=== PATIENT | female | born 1985 | race Caucasian/White ===

== ENCOUNTER → 2017-02-02 | Outpatient (REF) | payer OTHER | LOC: M SFHCWAGY 16:08 | PROVIDERS: ATTEND Nurse Practitioner Family | DX: Z12.4 Encounter for screening for malignant neoplasm of cervix (principal) ==

== ENCOUNTER → 2018-02-04 | Outpatient (REF) | payer OTHER | LOC: M SFHCWAGY 16:12 | DX: Z12.4 Encounter for screening for malignant neoplasm of cervix (principal) ==

== ENCOUNTER → 2018-06-22 | Outpatient (REF) | payer OTHER ==
[2018-06-22 13:43] LABS: HEMATOCRIT 43.4 % (36.0-47.0); HEMOGLOBIN 14.5 g/dl (12.0-15.5); MEAN CORPUSCULAR HEMOGLOBIN 30.5 pg (27.0-33.0); MEAN CORPUSCULAR HGB CONC 33.4 g/dl (32.0-36.5); MEAN CORPUSCULAR VOLUME 91.2 fl (80.0-96.0); PLATELET COUNT, AUTOMATED 254 10^3/uL (150-450); RED BLOOD COUNT 4.76 10^6/uL (4.00-5.40); WHITE BLOOD COUNT 6.8 10^3/uL (4.0-10.0)
[2018-06-22 14:18] LABS: HCG, SERUM QUALITATIVE NEGATIVE (NEGATIVE); PROLACTIN 4.9 NG/ML
[2018-06-22 14:19] LABS: FOLLICLE STIMULATING HORMONE 8.3 mIU/mL
[2018-06-24 00:06] LABS: TESTOSTERONE FREE (DIRECT) 2.6 pg/mL (0.0-4.2)
== END ==
LOC: M SFHCWAGY 12:36
PROVIDERS: ATTEND Nurse Practitioner Family
DX: N91.1 Secondary amenorrhea (principal)

== ENCOUNTER → 2018-12-14 | Outpatient (CLI) | payer OTHER ==
--- NOTE | 2018-12-14 14:03 | REP ---
Clinical: Irregular menstrual cycles . Technique: Transabdominal pelvic ultrasound followed by transvaginal examination for better evaluation of the endometrium and adnexa with color Doppler evaluation of the ovaries. Findings: Bladder is unremarkable and measures 14.0 x 10.2 x 7.7 cm . Normal anteverted/left deviated uterus measures 9.1 x 3.4 x 4.6 cm . The endometrial complex measures 10.5 mm thickness. No discrete uterine or endometrial abnormalities are appreciated. Incidental subcentimeter Nabothian cyst. Bilateral ovaries are normal in vascularity without torsion. Right ovary is enlarged and heterogeneous measuring 5.3 x 2.9 x 4.2 cm (RI 0.39) but without focal mass lesion or abnormality identified. Left ovary measures 1.7 x 1.0 x 1.5 cm (RI 0.55). No pelvic fluid or adnexal mass lesion. . Impression: 1. Essentially normal appearance to the uterus and the left ovary. 2. Right ovary appears heterogeneous and enlarged without discrete mass lesion. Consider reevaluation in 4-6 weeks to evaluate for resolution.
== END ==
LOC: M WHC 12:56
PROVIDERS: ATTEND Nurse Practitioner Family
DX: N92.6 Irregular menstruation, unspecified (principal)

== ENCOUNTER → 2019-02-14 | Outpatient (REF) | payer OTHER | LOC: M SFHCWAGY 16:02 | PROVIDERS: ATTEND Nurse Practitioner Family | DX: Z12.4 Encounter for screening for malignant neoplasm of cervix (principal) ==

== ENCOUNTER → 2020-02-16 | Outpatient (REF) | payer OTHER | LOC: M SFHCWAGY 10:03 | PROVIDERS: ATTEND Nurse Practitioner Family | DX: Z12.4 Encounter for screening for malignant neoplasm of cervix (principal) ==

== ENCOUNTER → 2020-06-07 | Outpatient (CLI) | payer OTHER ==
--- NOTE | 2020-06-07 09:10 | REP ---
INDICATION: PERSONAL HX BREAST CA,BRCA GENE POSITIVE HIGH RISK OVARIAN C COMPARISON: None. TECHNIQUE: Transabdominal pelvic ultrasound followed by transvaginal examination for better evaluation of the endometrium and adnexa with color evaluation of the ovaries. FINDINGS: Bladder is unremarkable and measures 5.7 x 3.4 x 7.2 cm. Anteverted uterus measures 0.7 x 3.7 x 4.6 cm. The endometrial complex measures 6.5 mm thickness. There appears to be a 1.5 cm suspected intramural fibroid along the right midbody of the uterus. Bilateral ovaries are normal in appearance. Right ovary measures 5.0 x 1.8 x 2.7 cm; left ovary measures 5.0 x 1.5 x 3.1 cm. No pelvic fluid or adnexal mass lesion. IMPRESSION: 1. Findings suggesting 1.5 cm intramural fibroid. <Electronically signed by Vu Lin > 06/07/20 [id number]
== END ==
LOC: M WHC 07:06
PROVIDERS: ATTEND Nurse Practitioner Family
DX: Z15.01 Genetic susceptibility to malignant neoplasm of breast (principal); Z85.3 Personal history of malignant neoplasm of breast

== ENCOUNTER → 2020-09-25 | Outpatient (REF) | payer OTHER ==
[2020-09-25 18:07] LABS: HEMATOCRIT 41.7 % (36.0-47.0); HEMOGLOBIN 13.7 g/dl (12.0-15.5); MEAN CORPUSCULAR HEMOGLOBIN 30.2 pg (27.0-33.0); MEAN CORPUSCULAR HGB CONC 32.9 g/dl (32.0-36.5); MEAN CORPUSCULAR VOLUME 92.1 fl (80.0-96.0); PLATELET COUNT, AUTOMATED 247 10^3/uL (150-450); RED BLOOD COUNT 4.53 10^6/uL (4.00-5.40); WHITE BLOOD COUNT 8.5 10^3/uL (4.0-10.0)
[2020-09-25 19:11] LABS: HEPATITIS C VIRUS ABY INDEX < 0.0 INDEX (<0.8); HIV 1&2 SCREEN CENTAUR NEGATIVE (NEGATIVE)
== END ==
LOC: M PLALAB 15:21
PROVIDERS: ATTEND Advanced Practice Midwife
DX: Z34.91 Encounter for supervision of normal pregnancy, unspecified, first trimester (principal); Z3A.01 Less than 8 weeks gestation of pregnancy

== ENCOUNTER → 2020-11-06 | Outpatient (CLI) | payer OTHER | LOC: M PLALAB 15:43 | PROVIDERS: ATTEND Specialist | DX: O09.511 Supervision of elderly primigravida, first trimester (principal) ==

== ENCOUNTER → 2020-12-18 | Outpatient (CLI) | payer OTHER ==
[~2020-12-18] MED LIST: CETI-24 PO; COLA100C5 PO; IBUP80TA PO; PERCOCET PO; PRENTAB9 PO
== END ==
LOC: M WHC 14:01
PROVIDERS: ATTEND Specialist
DX: Z34.82 Encounter for supervision of other normal pregnancy, second trimester (principal)

== ENCOUNTER → 2021-02-19 | Outpatient (CLI) | payer OTHER ==
[2021-02-19 16:33] LABS: HEMATOCRIT 33.5 % (36.0-47.0); HEMOGLOBIN 11.5 g/dl (12.0-15.5); MEAN CORPUSCULAR HEMOGLOBIN 31.3 pg (27.0-33.0); MEAN CORPUSCULAR HGB CONC 34.3 g/dl (32.0-36.5); PLATELET COUNT, AUTOMATED 235 10^3/uL (150-450); RED BLOOD COUNT 3.68 10^6/uL (4.00-5.40); WHITE BLOOD COUNT 11.2 10^3/uL (4.0-10.0)
== END ==
LOC: M LAB 14:53
PROVIDERS: ATTEND Advanced Practice Midwife
DX: O09.512 Supervision of elderly primigravida, second trimester (principal); Z3A.00 Weeks of gestation of pregnancy not specified

== ENCOUNTER → 2021-03-04 | Outpatient (CLI) | payer OTHER | LOC: M LAB 07:19 | PROVIDERS: ATTEND Advanced Practice Midwife | DX: O09.512 Supervision of elderly primigravida, second trimester (principal); Z3A.00 Weeks of gestation of pregnancy not specified ==

== ENCOUNTER → 2021-03-28 | Outpatient (CLI) | payer OTHER ==
--- NOTE | 2021-03-28 13:43 | REP ---
INDICATION: GROWTH, SIZE DATE DISCREPANCY. COMPARISON: 12/18/2020 TECHNIQUE: Transabdominal scanning FINDINGS: Multiple ultrasonographic images of the gravid uterus shows a single living intrauterine gestation in the breech presentation. Doppler interrogation of the heart shows a heart rate of 152 beats per minute. The placenta is anterior and not low-lying. The cervix measures 4.6 cm in length and is closed. Doppler interrogation of the umbilical artery shows an A\B ratio of 2.33. This is within the normal range. The subjective amniotic fluid volume is within normal limits. The calculated amniotic fluid index is 10.9 with an expected range of 8.4-24.4. BPD: 8.9 cm 36 weeks 0 days HC: 30.3 cm 33 weeks 5 days AC: 29.8 cm 33 weeks 6 days FL: 6 cm 31 weeks 1 day The estimated weight is 2151 g which is at the 62nd percentile. A uterine fibroid was again identified. This is unchanged. IMPRESSION: Single living intrauterine gestation as described above with an estimated gestational age of 33 weeks 2 days via composite criteria and an estimated date of delivery of 05/14/2021 by today's exam. <Electronically signed by Rodrigo Tomas > 03/28/21 [id number]
== END ==
LOC: M WHC 10:37
PROVIDERS: ATTEND Advanced Practice Midwife
DX: O26.849 Uterine size-date discrepancy, unspecified trimester (principal)

== ENCOUNTER → 2021-04-25 | Outpatient (REF) | payer OTHER | LOC: M SFHCWAGY 17:33 | PROVIDERS: ATTEND Obstetrics & Gynecology | DX: O32.1XX1 Maternal care for breech presentation, fetus 1 (principal); Z3A.00 Weeks of gestation of pregnancy not specified ==

== ENCOUNTER → 2021-05-08 | Outpatient (CLI) | payer OTHER ==
[~2021-05-08] MED LIST changes: -COLA100C5 PO; -IBUP80TA PO; -PERCOCET PO; -PRENTAB9 PO
== END ==
LOC: M LABSMTC 11:01
PROVIDERS: ATTEND Anesthesiology
DX: Z01.812 Encounter for preprocedural laboratory examination (principal); Z20.822 Contact with and (suspected) exposure to COVID-19

== ENCOUNTER 2021-05-13 06:14 | Inpatient (IN) | payer OTHER ==
[2021-05-13] VITALS (8 sets, daily range): BP systolic 123–146; BP diastolic 66–87
[~2021-05-13] VITALS: Ht 157.5 cm; Wt 102.4 kg
[2021-05-13] MEDS ORDERED: PRENTAB9 PO (07:02)
[2021-05-13 07:24] LABS: HEMATOCRIT 35.9 % (36.0-47.0); HEMOGLOBIN 12.1 g/dl (12.0-15.5); MEAN CORPUSCULAR HEMOGLOBIN 30.3 pg (27.0-33.0); MEAN CORPUSCULAR HGB CONC 33.7 g/dl (32.0-36.5); MEAN CORPUSCULAR VOLUME 89.8 fl (80.0-96.0); PLATELET COUNT, AUTOMATED 195 10^3/uL (150-450); WHITE BLOOD COUNT 11.3 10^3/uL (4.0-10.0)
[2021-05-13] MEDS ORDERED: BICITRA 30ML SOLN UDC PO ONE (08:10)
[2021-05-13] MEDS ORDERED: CLINDAMYCIN 900 MG in IV 1 EA IV ONE (08:10)
[2021-05-13] MEDS ORDERED: GENTAMICIN 120 MG in D5W 50 ML IV ONE (08:10)
[2021-05-13] MEDS ORDERED: LR 1,000 ML IV SCH ×2 (08:10→11:50)
[2021-05-13] MEDS ORDERED: OXYTOCIN INJ 10 UNITS/ML VIAL (J2590) As Ordered ONE (09:32)
[2021-05-13] MEDS ORDERED: MORPHINE PRES-FREE INJ 10 MG/10 ML VIAL (J2274) As Ordered ONE (09:34)
[2021-05-13] MEDS ORDERED: ONDANSETRON 4MG/2ML VIAL As Ordered ONE ×2 (10:19→12:21)
[2021-05-13] MEDS ORDERED: NALBUPHINE HCL 10 MG/ML AMP (J2300) IV PRN (10:24)
[2021-05-13] MEDS ORDERED: ONDANSETRON 4MG/2ML VIAL IV PRN ×3 (10:24→11:50)
[2021-05-13] MEDS ORDERED: diphenhydrAMINE 50MG/ML VIAL (J1200) IV PRN (10:24)
[2021-05-13] MEDS ORDERED: METOCLOPRAMIDE INJ 10MG/2ML VIAL (J2765 PER 1) IV PRN ×2 (10:24→11:50)
[2021-05-13] MEDS ORDERED: NALOXONE INJ 0.4MG/1ML VIAL (J2310 PER 1MG) IV PRN ×2 (10:24)
[2021-05-13] MEDS ORDERED: KETOROLAC 60MG 2ML VIAL As Ordered ONE (10:46)
[2021-05-13 11:05] LABS: CORD GAS ABE V -2.4; CORD GAS HCO3 V 24.1 MEQ/L; CORD GAS O2 SAT V 46.3 %; CORD GAS PCO2 V 47.7 mmHg; CORD GAS PH V 7.321 UNITS; CORD GAS PO2 V 19.6 mmHg; CORD GAS SBC V 21.2 MEQ/L; CORD GAS TCO2 V 25.5 MEQ/L
[2021-05-13] MEDS ORDERED: SIMETHICONE 80MG CHEW TAB PO PRN (11:20)
[2021-05-13] MEDS: LR 1,000 ML IV SCH ×2 (11:20→19:20)
[2021-05-13] MEDS ORDERED: PERCOCET 5MG/325MG TAB PO PRN ×3 (11:20→11:50)
[2021-05-13] MEDS ORDERED: MEASLES,MUMPS,RUBELLA VACCINE INJ (MMR-II) (90707) SC SCH (11:20)
[2021-05-13] MEDS ORDERED: OXYTOCIN DRIP 30 UNITS in IV 1 EA IV SCH (11:20)
[2021-05-13] MEDS ORDERED: RHOGAM 300 MCG (1500 IU) INJ (J2790) IM SCH (11:20)
--- NOTE | 2021-05-13 11:25 | ROOPDOC ---
[facility] Report Of Operation Report of Operation DATE OF PROCEDURE: 05/13/2021 PREPROCEDURE DIAGNOSES: 39+ weeks gestation, breech presentation POSTPROCEDURE DIAGNOSES: Same PROCEDURE: Primary low transverse section SURGEON: Thomas Contreras DO FACOG [employer] OPENER INSTALLER: Jeri Serna CNM (Essential role in retraction, extraction, and closure of all tissue layers) ANESTHESIA: Spinal with Duramorph ESTIMATED BLOOD LOSS: 500 mL. IV FLUIDS: 1000 mL LR URINE OUTPUT: 25 mL COMPLICATIONS: None. PREOPERATIVE ANTIBIOTICS: Clindamycin 900 mg IV x1, gentamicin 120 mg IV x1 COMPLICATIONS: none DATA: Apgars 9 and 9. Birthweight 3690 g, 8 lbs 2 oz. SPECIMENS: none PRIMARY INDICATION FOR : Breech presentation, declined external cephalic version DESCRIPTION OF PROCEDURE: The patient was counseled on the risks, benefits, indications and alternatives of the procedure. Informed consent was obtained. She was taken to the operating room with IV running and placed on the operating table in the dorsal supine position with a leftward tilt. Regional anesthesia was found to be adequate. Sequential compression devices were placed on the lower extremities. A Hernandez catheter was placed under sterile conditions. She was prepared and draped in normal sterile fashion. A time out was performed per protocol. Regional anesthesia was again found to be adequate. A Pfannenstiel skin incision was made with the 10 blade. The 10 blade was used to dissect down to the level of the rectus sheath fascia. The rectus sheath fascia was incised midline and this was extended bilaterally with Hernández scissors , and manual stretch. The rectus muscle bellies were dissected off the rectus sheath fascia superiorly and inferiorly using both sharp and blunt dissection. The midline was identified. The peritoneum was identified and entered digitally. The peritoneal opening was extended with manual stretch. The Mobius retractor was placed. The vesicouterine peritoneum was dissected with Metzenbaum scissors to create the bladder flap. A low transverse uterine incision was made with the 10 blade. This was extended with manual stretch. The amniotic sac was punctured, and clear fluid was noted. The baby delivered through the hysterotomy without difficulty using typical breech maneuvers. The cord was doubly clamped and cut, and the baby was handed off to awaiting care. data shown above. Cord blood obtained. Cord gases were obtained. The placenta was removed manually. The intrauterine cavity was cleared of all clot and debris. The hysterotomy was closed with 0 Vicryl in running locked fashion. This was reinforced with a second imbricating layer using 0 Vicryl in running fashion. Excellent hemostasis of the hysterotomy was noted. The pelvis was irrigated and the fluid suctioned. The Mobius retractor was removed. The peritoneum was closed with 3-0 Vicryl running fashion. The rectus muscle bellies were reapproximated with interrupted stitches using 3-0 Vicryl. The rectus muscles bellies were hemostatic. The rectus sheath fascia was closed with 0 Vicryl running fashion. The subcutaneous layer was irrigated and the f luid suctioned. Small bleeding vessels were cauterized with Bovie. Excellent hemostasis was noted. The subcutaneous layer was reapproximated with 3-0 Vicryl running fashion. Skin was closed with 3-0 Monocryl in subcuticular fashion. An Optifoam bandage was placed over the closed incision. Sponge, needle and instrument counts were correct per protocol throughout the procedure. The patient tolerated the entire procedure very well. She was transferred to the PACU in stable condition. DO LEXI Yung JONATHAN R. DO May 13, 2021 11:25
[2021-05-13] MEDS ORDERED: PERCOCET PO (11:27)
[2021-05-13] MEDS ORDERED: COLA100C5 PO (11:27)
[2021-05-13] MEDS ORDERED: IBUP80TA PO (11:27)
[2021-05-13] MEDS ORDERED: fentaNYL 100 MCG/2 ML INJECTION (J3010) IV PRN (11:50)
[2021-05-13] MEDS ORDERED: OXYTOCIN 30 UNITS IN 0.9% NaCl 500ML IV BAG (J2590) As Ordered ONE (11:52)
[2021-05-13] MEDS ORDERED: LR 500 ML IV ONE (16:35)
[2021-05-13] MEDS: KETOROLAC 30 MG/ML 1ML VIAL IV SCH ×2 (16:51→22:28)
[2021-05-13] MEDS: DOCUSATE SODIUM 100MG CAPSULE PO SCH (21:00)
[2021-05-14 02:01] VITALS: BP 137/87
[2021-05-14] MEDS: LR 1,000 ML IV SCH (02:12)
[2021-05-14] MEDS: KETOROLAC 30 MG/ML 1ML VIAL IV SCH (04:18)
[2021-05-14 05:56] VITALS: BP 138/79
[2021-05-14 07:05] LABS: HEMATOCRIT 29.5 % (36.0-47.0); MEAN CORPUSCULAR HEMOGLOBIN 30.7 pg (27.0-33.0); MEAN CORPUSCULAR HGB CONC 33.6 g/dl (32.0-36.5); MEAN CORPUSCULAR VOLUME 91.6 fl (80.0-96.0); PLATELET COUNT, AUTOMATED 144 10^3/uL (150-450); RED BLOOD COUNT 3.22 10^6/uL (4.00-5.40); WHITE BLOOD COUNT 9.9 10^3/uL (4.0-10.0)
[2021-05-14 07:09] LABS: HEMOGLOBIN 9.9 g/dl (12.0-15.5)
--- NOTE | 2021-05-14 09:17 | IPNPDOC ---
Text Note Date of Service The patient was seen on 05/14/21. NOTE Post note S: no complaints O: AVSS NAD Abd: NT, dressing c/d/i ext: NT A/P POD#1 s/p C/S Advance diet Ambulate routine post op care VS,Fishbone, I+O VS, Fishbone, I+O Laboratory Tests 05/14/21 06:32 Vital Signs Date Time Temp Pulse Resp B/P (MAP) Pulse Ox O2 Delivery O2 Flow Rate FiO2 05/14/21 05:56 97.2 77 18 138/79 (98) 98 Room Air I&O- Last 24 Hours up to 6 AM 05/14/21 06:00 Intake Total 3870 ml Output Total 1080 ml Balance 2790 ml RONNIE MALIK MD May 14, 2021 09:17
[2021-05-14 10:05] VITALS: BP 127/80
[2021-05-14] MEDS: DOCUSATE SODIUM 100MG CAPSULE PO SCH ×2 (11:12→21:40)
[2021-05-14] MEDS: PRENATAL VITAMINS CHEWABLE TABLET PO SCH (11:12)
[2021-05-14] MEDS: IBUPROFEN 800 MG TAB PO SCH ×2 (13:39→21:40)
[2021-05-14 14:00] VITALS: BP 133/77
[2021-05-14 18:00] VITALS: BP 139/80
[2021-05-14 22:00] VITALS: BP 137/79
[2021-05-15] MEDS: IBUPROFEN 800 MG TAB PO SCH (05:06)
[2021-05-15 05:14] VITALS: BP 143/91
[2021-05-15] MEDS: PRENATAL VITAMINS CHEWABLE TABLET PO SCH (08:17)
[2021-05-15] MEDS: DOCUSATE SODIUM 100MG CAPSULE PO SCH (08:17)
--- NOTE | 2021-05-15 13:16 | DSES ---
DISCHARGE SUMMARY DATE OF ADMISSION: 05/13/2021 DATE OF DISCHARGE: 05/15/2021 DISCHARGE DIAGNOSIS: 1. Primary section for breech presentation postop day #2, stable condition. SURGEON: KRYSTIN CONTRERAS DO [employer] TECHNICAL OFFICER: JIMI MOLINA CNM HISTORY: Yamilet underwent a primary section due to breech presentation and a declined external cephalic version. The surgery was uncomplicated. She had an estimated blood loss of 500 ml. She delivered a live male weighing 3690 grams, 8 pounds, 2 ounces, Apgars were 9 and 9. Her postoperative course has been uncomplicated. She has been out of bed for self-care, manohar-care and care. She is breast-feeding successfully. Her pain has been well-managed by p.o. pain medications, tolerating a regular diet and fluids. She is voiding without difficulty and passing flatus. OBJECTIVE: Temperature is 97.7, pulse is 66, respirations are 16, BP is 143/91. She is alert and oriented x3. She does not appear uncomfortable. Preoperative CBC on 05/13/21: Hemoglobin 12.1, hematocrit 35.9, platelets are 195,000. Postoperative CBC on 05/14 with a hemoglobin of 9.9, hematocrit 29.5 and platelets of 144,000. She is alert and oriented x3. Her breasts are soft and nontender. Nipples are intact. Abdomen: Fundus firm at one fingerbreadth below umbilicus. The incision has the Optifoam dressing applied. There is no new drainage observed. Perineum is intact with lochia rubra scant. Bilateral lower extremities with scant pitting edema. PLAN: Discharge the patient home. She is to follow-up at [facility] for a two week incision check and an eight week visit. I did review discharge instructions that include breast care, incision care, manohar-care, pelvic rest, activity and lifting restrictions, danger signs to report, signs and symptoms of mastitis and phlebitis, access to her care provider. She has had e-prescriptions sent to her pharmacy by Dr. Krystin Contreras for pain management, Percocet and Ibuprofen. The patient and her partner have had all of their questions answered and request discharge home.
== END 2021-05-15 11:50 | disposition home or self-care (01) | DRG 788 ==
LOC: M LDI 06:14 → M OBS 12:47
PROVIDERS: ADMIT Obstetrics & Gynecology; ATTEND Obstetrics & Gynecology
PROC: 10D00Z1 Extraction of Products of Conception, Low, Open Approach (ICD-10-PCS; principal; 2021-05-13 09:30)
DX: O32.1XX0 Maternal care for breech presentation, not applicable or unspecified (principal); Z37.0 Single live birth; Z3A.39 39 weeks gestation of pregnancy; O09.523 Supervision of elderly multigravida, third trimester

== ENCOUNTER → 2021-09-05 | Outpatient (REF) | payer OTHER ==
[~2021-09-05] MED LIST changes: +COLA100C5 PO; +IBUP80TA PO; +PERCOCET PO; +PRENTAB9 PO
== END ==
LOC: M SFHCWAGY 16:59
PROVIDERS: ATTEND Obstetrics & Gynecology
DX: Z12.4 Encounter for screening for malignant neoplasm of cervix (principal)

== ENCOUNTER → 2022-07-24 | Outpatient (REF) | payer OTHER | LOC: M LAB REF 17:13 | PROVIDERS: ATTEND Physician Assistant | DX: H65.22 Chronic serous otitis media, left ear (principal) ==

== ENCOUNTER → 2023-02-06 | Outpatient (CLI) | payer OTHER | LOC: M PLARAD 10:40 | DX: Z15.01 Genetic susceptibility to malignant neoplasm of breast (principal); Z15.09 Genetic susceptibility to other malignant neoplasm ==

== ENCOUNTER → 2023-04-10 | Outpatient (REF) | payer OTHER ==
[2023-04-10 14:08] LABS: APPEARANCE, URINE CLOUDY (CLEAR); BACTERIA, URINE AUTO NEGATIVE (NEGATIVE); BILIRUBIN, URINE AUTO NEGATIVE (NEGATIVE); BLOOD, URINE BLOOD 3+ (NEGATIVE); COLOR, URINE YELLOW (YELLOW); GLUCOSE, URINE (UA) AUTO NEGATIVE (NEGATIVE); KETONE, URINE AUTO NEGATIVE (NEGATIVE); LEUKOCYTE ESTERASE, URINE AUTO 3+ (NEGATIVE); MUCUS, URINE SMALL (NEGATIVE); NITRITE, URINE AUTO NEGATIVE (NEGATIVE); PROTEIN, URINE AUTO 1+ mg/dL (NEGATIVE); RBC, URINE AUTO TNTC /HPF (0-3); SPECIFIC GRAVITY URINE AUTO 1.015 (1.002-1.035); SQUAMOUS EPITHELIAL CELL UR AU 1 /HPF (0-6); UROBILINOGEN, URINE AUTO 0.2 mg/dL (0.0-2.0); WBC, URINE AUTO TNTC /HPF (0-3)
== END ==
LOC: M LAB REF 13:31
PROVIDERS: ATTEND Physician Assistant
DX: N39.0 Urinary tract infection, site not specified (principal)

== ENCOUNTER → 2023-05-08 | Outpatient (REF) | payer OTHER | LOC: M SFHCDERM 09:44 | PROVIDERS: ATTEND Physician Assistant | DX: D49.2 Neoplasm of unspecified behavior of bone, soft tissue, and skin (principal) ==

== ENCOUNTER → 2023-06-17 | Outpatient (CLI) | payer OTHER | LOC: M PLAIMG 13:51 | PROVIDERS: ATTEND Family Medicine | DX: M25.571 Pain in right ankle and joints of right foot (principal) ==

== ENCOUNTER → 2023-09-30 | Outpatient (CLI) | payer OTHER ==
[2023-09-30 11:52] LABS: BLOOD UREA NITROGEN 15 MG/DL (9-23); CALCIUM LEVEL 9.3 MG/DL (8.5-10.1); CARBON DIOXIDE LEVEL 28 MMOL/L (20-31); CHLORIDE LEVEL 107 MMOL/L (98-107); CHOLESTEROL LEVEL 210 MG/DL (<200); CREATININE FOR GFR 0.73 MG/DL (0.55-1.30); GLOMERULAR FILTRATION RATE > 60.0 (>58); GLUCOSE, FASTING 98 MG/DL (60-100); LDL CHOLESTEROL 137.2 MG/DL (<100); POTASSIUM SERUM 4.7 MMOL/L (3.5-5.1); SODIUM LEVEL 140 MMOL/L (136-145); TRIGLYCERIDES LEVEL 114 MG/DL (<150)
== END ==
LOC: M PLALAB 06:59
PROVIDERS: ATTEND Family Medicine
DX: R03.0 Elevated blood-pressure reading, without diagnosis of hypertension (principal)

== ENCOUNTER → 2023-12-22 | Outpatient (REF) | payer OTHER ==
[2023-12-22 18:54] LABS: APPEARANCE, URINE HAZY (CLEAR); BACTERIA, URINE AUTO 1+ (NEGATIVE); BILIRUBIN, URINE AUTO NEGATIVE (NEGATIVE); BLOOD, URINE BLOOD 2+ (NEGATIVE); COLOR, URINE YELLOW (YELLOW); GLUCOSE, URINE (UA) AUTO NEGATIVE (NEGATIVE); KETONE, URINE AUTO NEGATIVE (NEGATIVE); LEUKOCYTE ESTERASE, URINE AUTO 3+ (NEGATIVE); MUCUS, URINE SMALL (NEGATIVE); NITRITE, URINE AUTO NEGATIVE (NEGATIVE); PROTEIN, URINE AUTO 1+ mg/dL (NEGATIVE); RBC, URINE AUTO 30 /HPF (0-3); SPECIFIC GRAVITY URINE AUTO 1.013 (1.002-1.035); SQUAMOUS EPITHELIAL CELL UR AU 1 /HPF (0-6); UROBILINOGEN, URINE AUTO 0.2 mg/dL (0.0-2.0); WBC, URINE AUTO 62 /HPF (0-3)
== END ==
LOC: M LAB REF 16:29
PROVIDERS: ATTEND Physician Assistant
DX: N39.0 Urinary tract infection, site not specified (principal)

== ENCOUNTER → 2024-01-22 | Outpatient (CLI) | payer OTHER ==
[~2024-01-22] MED LIST changes: +PROHANCE 279.3MG/ML 15ML VIAL As Ordered ONE; +PROHANCE 279.3MG/ML 5ML VIAL As Ordered ONE
== END ==
LOC: M RAD 08:08
PROVIDERS: ATTEND Nurse Practitioner Family
DX: Z15.01 Genetic susceptibility to malignant neoplasm of breast (principal); Z15.09 Genetic susceptibility to other malignant neoplasm
CPT/HCPCS: 74183; A9576

== ENCOUNTER → 2024-03-09 | Outpatient (REF) | payer OTHER ==
[~2024-03-09] MED LIST changes: -PROHANCE 279.3MG/ML 15ML VIAL As Ordered ONE; -PROHANCE 279.3MG/ML 5ML VIAL As Ordered ONE
[2024-03-14 16:39] LABS: HPV APTIMA Not Detected (Not Detected)
== END ==
LOC: M PLALAB 08:12
PROVIDERS: ATTEND Obstetrics & Gynecology
DX: Z12.4 Encounter for screening for malignant neoplasm of cervix (principal); L29.89 Other pruritus
CPT/HCPCS: 87624; G0123

== ENCOUNTER → 2024-08-17 | Outpatient (CLI) | payer OTHER | LOC: M WHC 14:36 | PROVIDERS: ATTEND Obstetrics & Gynecology | DX: D25.9 Leiomyoma of uterus, unspecified (principal) ==

== ENCOUNTER → 2025-02-06 | Outpatient (CLI) | payer OTHER ==
[2025-02-06 15:34] LABS: PLATELET COUNT, AUTOMATED 247 10^3/uL (150-450)
[2025-02-06 16:09] LABS: HIV 1&2 SCREEN NEGATIVE (NEGATIVE)
[2025-02-06 16:18] LABS: HEPATITIS C VIRUS ABY INDEX < 0.02 INDEX (<0.8)
[2025-02-06 16:37] LABS: Trichomonas vaginalis (AMP) NOT DETECTED (NEGATIVE)
[2025-02-06 17:01] LABS: GC DNA AMPLIFICATION NEGATIVE (NEGATIVE)
== END ==
LOC: M PLALAB 09:49
PROVIDERS: ATTEND Student in an Organized Health Care Education/Training Program
DX: Z34.80 Encounter for supervision of other normal pregnancy, unspecified trimester (principal)

== ENCOUNTER → 2025-03-06 | Outpatient (CLI) | payer OTHER | LOC: M PLALAB 09:03 | PROVIDERS: ATTEND Student in an Organized Health Care Education/Training Program | DX: Z34.80 Encounter for supervision of other normal pregnancy, unspecified trimester (principal) ==

== ENCOUNTER → 2025-03-15 | Outpatient (REF) | payer OTHER | LOC: M SFHCADAM 10:47 | PROVIDERS: ATTEND Nurse Practitioner Family | DX: L72.0 Epidermal cyst (principal) ==

== ENCOUNTER → 2025-04-24 | Outpatient (CLI) | payer OTHER | LOC: M WHC 15:27 | PROVIDERS: ATTEND Student in an Organized Health Care Education/Training Program | DX: Z34.80 Encounter for supervision of other normal pregnancy, unspecified trimester (principal) ==